=== PATIENT | male | born 1945 ===

== ENCOUNTER 2017-12-02 10:30 | Inpatient (IN) | payer OTHER ==
[~2017-12-02] VITALS: Ht 172.7 cm; Wt 68.0 kg
[2017-12-03] MEDS ORDERED: SYNTHROID75 MCG PO (12:33)
[2017-12-03] MEDS ORDERED: HYDROCHLOROTHIA25 MG PO (12:33)
[2017-12-03] MEDS ORDERED: LOTREL 5-20 MG1 CAP PO (12:33)
[2017-12-10] MEDS ORDERED: GABAPENTIN800 MG PO (16:49)
[2017-12-10] MEDS ORDERED: DOCUSATE SODIU100 MG PO (16:50)
[2017-12-10] MEDS ORDERED: PERCOCET 5-3251 EACH PO (16:51)
[2017-12-10] MEDS ORDERED: CLONAZEPAM1 MG PO (16:51)
[2017-12-10] MEDS ORDERED: AMOX-CLAV 875-1 EACH PO (16:51)
== END 2017-12-11 15:10 | disposition home or self-care (01) | DRG 460 ==
LOC: O/R 12-10 04:35 → PED 12-10 04:35 → SURG 12-10 11:00 → PED 12-10 18:58
PROVIDERS: Orthopaedic Surgery Orthopaedic Surgery of the Spine
PROC: 0SG10AJ Fusion of 2 or more Lumbar Vertebral Joints with Interbody Fusion Device, Posterior Approach, Anterior Column, Open Approach (ICD-10-PCS; 2017-12-10)
PROC: 0ST20ZZ Resection of Lumbar Vertebral Disc, Open Approach (ICD-10-PCS; 2017-12-10)
PROC: 07DS3ZZ Extraction of Vertebral Bone Marrow, Percutaneous Approach (ICD-10-PCS; 2017-12-10)
PROC: 0SG10A0 Fusion of 2 or more Lumbar Vertebral Joints with Interbody Fusion Device, Anterior Approach, Anterior Column, Open Approach (ICD-10-PCS; principal; 2017-12-10 17:15)
DX: M96.1 Postlaminectomy syndrome, not elsewhere classified (principal); M47.26 Other spondylosis with radiculopathy, lumbar region; M51.16 Intervertebral disc disorders with radiculopathy, lumbar region; M48.061 Spinal stenosis, lumbar region without neurogenic claudication; E03.8 Other specified hypothyroidism; I10 Essential (primary) hypertension; M62.81 Muscle weakness (generalized); R26.89 Other abnormalities of gait and mobility; M41.86 Other forms of scoliosis, lumbar region

== ENCOUNTER 2018-01-16 11:36 | Emergency (ER) | payer OTHER ==
[~2018-01-16] VITALS: Ht 172.7 cm; Wt 68.0 kg
[~2018-01-16 11:36] MED LIST: AMOX-CLAV 875-1 EACH PO; CLONAZEPAM1 MG PO; DOCUSATE SODIU100 MG PO; GABAPENTIN800 MG PO; HYDROCHLOROTHIA25 MG PO; LOTREL 5-20 MG1 CAP PO; PERCOCET 5-3251 EACH PO; SYNTHROID75 MCG PO
== END 2018-01-16 19:12 | disposition home or self-care (01) ==
LOC: ER 11:36
DX: G89.18 Other acute postprocedural pain (principal); M79.605 Pain in left leg; M79.604 Pain in right leg